=== PATIENT | female | born 1940 | race Two or more races ===

== ENCOUNTER 2020-01-31 10:28 | Emergency (ER) | payer OTHER ==
[~2020-01-31] VITALS: Ht 142.2 cm; Wt 74.4 kg
[2020-01-31 11:00] VITALS: BP 130/75
--- NOTE | 2020-01-31 11:00 | NUR ---
ED Nurse Note: Pt came to ED for fall today at 0530. Pt states she hit head but denies LOC. No nausea, vomiting. Pt is alert and oriented, ambulatory with assist. Pt has erythema on posterior head, no open wounds. Pt head pain 7/10.
[2020-01-31] MEDS ORDERED: Acetaminophen 500mg (ES) tab ORAL ONE (11:30)
--- NOTE | 2020-01-31 12:37 | NUR ---
ED Nurse Note: Report given to Hoda JANSEN.
--- NOTE | 2020-01-31 12:38 | NUR ---
ED Nurse Note: received patient in bed from Constance JANSEN, ice pack applied to the posterior head as ordered. patient is resting in bed, a/o x4.
--- NOTE | 2020-01-31 13:03 | Emergency Room Report ---
History of Present Illness General Chief Complaint: Multiple Trauma/Fall Source: Patient Present Illness HPI Patient is a 79-year-old female presents after increased headache. Patient had recent injury to the back of his head after falling from standing. She reports falling backwards and hitting the back of her head. She denies any extremity pain or low back pain. Injury occurred approximately 5:00 this morning. Denies any nausea or vomiting since the injury. Denies any weakness to her extremities. She been ambulatory after the accident. Patient works at [employer]. Denies any loss of consciousness. 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 COVID-19 Screening: Negative COVID-19 COVID-19 Testing Source: Nasopharynx Patient History Past Medical History: see triage record Reviewed Nursing Documentation: PMH: Agreed; PSxH: Agreed Nursing Documentation-PMH Past Medical History: No History, Except For Hx Diabetes: Yes Review of Systems All Other Systems: negative except mentioned in HPI Physical Exam Vital Signs Date Time Temp Pulse Resp B/P (MAP) Pulse Ox O2 Delivery O2 Flow Rate FiO2 01/31/20 10:32 97.9 58 18 116/72 (87) 95 Room Air 01/31/20 11:00 100 Sp02 EP Interpretation: reviewed, normal General Appearance: normal inspection, well appearing, no apparent distress, alert, GCS 15, obese Head: other - Occipital hematoma ENT: normal ENT inspection, hearing grossly normal, normal voice Neck: normal inspection, full range of motion, supple, no bony tend Respiratory: normal inspection, lungs clear, normal breath sounds, no respiratory distress, no retraction, no wheezing Cardiovascular #1: regular rate, rhythm, no edema Gastrointestinal: normal inspection, normal bowel sounds, non tender, soft, no guarding, no hernia Genitourinary: no CVA tenderness Musculoskeletal: normal inspection, back normal, normal range of motion Neurologic: alert, motor strength/tone normal, proof reader III-XII nml as tested, oriented x3, responsive, speech normal, normal inspection Psychiatric: normal inspection, judgement/insight normal, mood/affect normal Skin: no rash Medical Decision Making Diagnostic Impression: Primary Impression: Fall Additional Impressions: Contusion of head Hematoma ER Course Patient presented for headache after a fall. Differential diagnosis includes not limited to fracture, contusion, subdural hematoma among others. Because of complexity of patient's case imaging studies were ordered. CT imaging read by radiology showed atrophic changes without evident acute fracture or intracranial hemorrhage. Patient was given Tylenol for headache as well as ice to the back of her head. She reports having improvement in pain. Patient was given return precautions advised to remain off work for the next 3 days. Patient was to be observed and to return if she began having any worsening headache persistent vomiting or any other concerns. Patient was advised to follow-up with Worker's Comp. physician for recheck. this medical record is generated with [email or web address] sales outfitter software. There may be some sales outfitter discrepancies related to use of this software. Last Vital Signs Date Time Temp Pulse Resp B/P (MAP) Pulse Ox O2 Delivery O2 Flow Rate FiO2 01/31/20 12:37 97.9 01/31/20 11:00 65 20 Room Air 100 01/31/20 11:00 130/75 97 Status: improved Disposition: HOME, SELF-CARE Condition: Stable Scripts Acetaminophen (Acetaminophen) 500 Mg Tablet 500 MG ORAL Q4H for PAIN, #30 TAB Prov: Woodrow Payne MD 01/31/20 Referrals: NON PHYSICIAN (PCP) Woodrow Payne MD Jan 31, 2020 13:03
[2020-01-31] MEDS ORDERED: ACETAMINOPHEN500 M5 ORAL (13:06)
--- NOTE | 2020-01-31 13:22 | NUR ---
ER DISCHARGE NOTE: Patient is cleared to be discharged per ERMD DR. JENSEN, pt is aox4, on room air, with stable vital signs. pt was given dc and prescription instructions, pt was able to verbalize understanding, pt id band removed without complications. pt is able to ambulate with steady gait. pt took all belongings.
[2020-01-31 13:23] VITALS: BP 130/75
--- NOTE | 2020-01-31 13:33 | Diagnostic Imaging Report ---
Indications: Head trauma, fall today at 0530. Altered mental status Technique: Spiral acquisitions obtained through the brain. Angled axial and coronal 5 x 5 mm slices were reconstructed. Total dose length product 1018 mGycm. CTDI vol(s) 53 mGy. Dose reduction achieved using automated exposure control Comparison: None. Findings: No acute intracranial hemorrhage or edema. No mass effect nor midline shift. Normal basilio-white differentiation. There is marked age-related enlargement of the extra-axial CSF spaces. Normal for age ventricles. Intact calvarium. The mastoids are clear. Visualized orbits and sinuses are unremarkable. Impression: Age-related cortical volume loss Negative for acute intracranial bleed or mass effect The CT scanner at [facility] is accredited by the [employer] and the scans are performed using protocols designed to limit radiation exposure to as low as reasonably achievable to attain images of sufficient resolution adequate for diagnostic evaluation.
== END 2020-01-31 13:22 | disposition home or self-care (01) ==
LOC: EMR 11:14
DX: S00.93XA Contusion of unspecified part of head, initial encounter (principal); W19.XXXA Unspecified fall, initial encounter; Y92.9 Unspecified place or not applicable; E11.9 Type 2 diabetes mellitus without complications
CPT/HCPCS: 70450; 99284